=== PATIENT | female | born 1940 | race Caucasian/White ===

== ENCOUNTER → 2019-10-05 | Outpatient (CLI) | payer MEDICARE ==
--- NOTE | 2019-10-05 10:52 | XR ---
EXAMINATION TYPE: XR chest 2V DATE OF EXAM: 10/05/2019 COMPARISON: CT January 21, 2011. Two view chest xray January 22, 2011 HISTORY: Cough for one month. TECHNIQUE: Frontal and lateral views of the chest are obtained. FINDINGS: There is chronic emphysematous change without suspicious focal air space opacity, pleural effusion, or pneumothorax seen bilaterally. The cardiac silhouette size is upper limits of normal wi th atherosclerotic aorta. The osseous structures are demineralized. Moderate multilevel spurring of the spine with scoliotic curvature. IMPRESSION: Chronic changes without acute pulmonary process.
== END | disposition home or self-care (01) ==
LOC: RADXRMAIN 10:18
PROVIDERS: ATTEND Family Medicine
DX: R05 Cough (principal)
CPT/HCPCS: 71046

== ENCOUNTER → 2020-07-11 | Outpatient (CLI) | payer MEDICARE ==
--- NOTE | 2020-07-13 11:36 | MM ---
Reason for exam: screening (asymptomatic). Last mammogram was performed 1 year and 4 months ago. History: Family history of breast cancer in aunt. Took progesterone beginning at age 48. Physical Findings: A clinical breast exam by your physician is recommended on an annual basis and results should be correlated with mammographic findings. MG 3D Screening Mammo W/Cad Bilateral CC and MLO view(s) were taken. Prior study comparison: March 02, 2019, mammogram. November 03, 2017, mammogram. There are scattered fibroglandular densities. There are benign appearing round dystrophic calcifications bilaterally. There is no discrete abnormality. ASSESSMENT: Benign, BI-RAD 2 RECOMMENDATION: Routine screening mammogram of both breasts in 1 year.
== END | disposition home or self-care (01) ==
LOC: RADMAMWWP 13:05
PROVIDERS: ATTEND Family Medicine
DX: Z12.31 Encounter for screening mammogram for malignant neoplasm of breast (principal)
CPT/HCPCS: 77063; 77067